=== PATIENT | female | born 1955 ===

== ENCOUNTER 2018-04-20 11:34 | Outpatient (CLI) | payer OTHER | END 2018-04-20 12:07 | disposition home or self-care (01) | LOC: MAMO-SONO 11:34 → EDBD 11:34 → MAMO-SONO 12:07 | DX: R92.0 Mammographic microcalcification found on diagnostic imaging of breast (principal); N60.11 Diffuse cystic mastopathy of right breast; N60.12 Diffuse cystic mastopathy of left breast; N63.22 Unspecified lump in the left breast, upper inner quadrant ==